=== PATIENT | male | born 1985 | race Caucasian/White ===

== ENCOUNTER 2024-08-06 09:07 | Emergency (ER) | payer MEDICAID, SELFPAY ==
[2024-08-06 09:11] VITALS: BP 149/96; PULSE 60; RESP 14; TEMP 36.8; O2SAT 98
[2024-08-06 09:20] VITALS: RESP 12
--- NOTE | 2024-08-06 09:46 | W.ED.GENAD ---
Discharge Plan Disposition Patient Disposition: Home Condition: Stable Discharge Details Clinical Impression: Disorganized behavior Primary Care Provider: Darrell Diaz ED Provider: Karlee Fitzgerald Home Meds and New Rx's Prescriptions: No Action methadone 10 mg/mL syringe 130 mg PO DAILY Discharge Instructions Instructions: Bipolar disorder - Discharge instructions Additional Instructions: You were seen in the emergency department today for evaluation of disorganized behavior and paranoid thoughts, which may or may not be related to your potential diagnosis of bipolar disorder. In the emergency department you had laboratory studies done that were reassuring, and included evidence that your liver function has improved compared to the labs that were drawn this summer. You met with a member of our social and political studies professor team and at this time are not amenable to staying in the hospital for care for your mental health concerns. Certainly you are always welcome to return to the emergency department for reevaluation and care. Additionally, you completed a safety plan with the social and political studies professor and you need to check in with their team at their office on Thursday, as per your agreement. Please follow-up with your primary care provider in the next few days to discuss this visit and any symptoms that change, worsen, or persist. Thank you for allowing us to be part of your care. HPI General Mode of arrival: ambulatory. Date/Time Provider Initiated Documentation: 08/06/24 09:08. Limitations to Documentation: no limitations. Information obtained by: patient and family. HPI Narrative: HPI: This is a 38-year-old male patient with a past medical history significant for opioid use disorder in remission on methadone maintenance therapy, a nonspecific mental health history including concern during a prior hospitalization for bipolar disorder, not on medications, presenting for evaluation of bizarre behavior. The patient is accompanied by his mother, with whom he lives. She reports that over the last week especially, but for longer as well, she has noted increasingly bizarre and paranoid behavior. The patient wrapped up his wallet, and his medications and little bundles because he is afraid that people are stealing them. She woke up this morning and states it the table on which she keeps her plants siblings had been broken, the window was open and the plans were arranged haphazardly outside the window. The patient reports that he woke up around 6 this morning, made some connections about the plants, it is all ginseng. He states that he has been sleeping well though his mother reports that she is concerned that he was up far more during the night than he reports. He spilled some of his methadone this morning, is also prescribed gabapentin but she has not been giving it to him as she is concerned that it may be compounding some of the behavioral issues that he is experiencing. The patient reports that he is not experiencing suicidal or homicidal ideation. He typically gets his care in [facility], presented here as they were concerned for biases associated with his use of methadone. Reports that he had a history of elevated liver enzymes last summer, had an ultrasound of his liver done a few weeks ago that is reported to me to have been normal. Exam: Gen: Awake and alert, in no apparent distress HEENT: Non-icteric sclera, PERRL Neck: Supple Lungs: No apparent respiratory distress, normal respiratory effort. CV: Appears well perfused Abdomen: Non-distended MSK: Moves 4 extremities without apparent limitation in ROM Skin: Visualized skin without rashes, cyanosis. Neuro: Normal Gait, no obvious focal deficits or facial asymmetry. Speaks in full, clear sentences. Psych: The patient has a guarded affect, is paranoid and verbally diss believing of the things that the parent is saying. Denies suicidal and homicidal ideation, is calm and appropriately interacting with this provider during my examination MDM: This is a 38-year-old male patient presenting for evaluation of paranoia and bizarre behavior. Differential includes but is not limited to primary psychiatric disturbance, considered mitchell, psychosis/delusions, no suicidal homicidal ideation. Considered intoxication and withdrawal symptoms, though the patient and his parent report no illicit substance or alcohol use. Considered metabolic electrolyte derangements, kidney or liver injury. At this time, the patient is amenable to laboratory workup and agrees verbally to meet with our social and political studies professor after medical clearance. We will obtain laboratory studies to include CBC, CMP, magnesium, ethanol level, urinalysis and UDS. ED Course: I independently interpreted the laboratory studies, which show no significant leukocytosis, anemia, or thrombocytopenia. The chemistry panel is without evidence of electrolyte abnormality, kidney dysfunction, or liver injury. Compared to verbal report of a transaminitis with liver enzymes in the 140s, this seems significantly improved. UDS positive for THC and methadone. The patient met with social work, and is not desiring to stay voluntarily for inpatient management of his mental health concerns. He does not meet criteria for an EE involuntary hold at this time given his ongoing lack of suicidal ideation, homicidal ideation, and his lack of behaviors that demonstrate a clear danger to himself or others. A safety plan was made and the patient will meet with NK in their office on Thursday for evaluation. At this time, the patient has had a full medical evaluation and is safe for discharge to home. They are hemodynamically stable, ambulatory, and tolerating PO. They are understanding of the follow-up plan and return precautions. They left our facility without incident. Karlee Fitzgerald MD Related Data Home Medications ?Medication ?Instructions ?Recorded ?Confirmed methadone 10 mg/mL oral syringe 130 mg PO DAILY 08/06/24 08/06/24 (FOR ORAL USE ONLY) Allergies Allergy/AdvReac Type Severity Reaction Status Date / Time buspirone (From BuSpar) AdvReac Intermediate Other (See Verified 08/06/24 09:27 Comment) trazodone AdvReac Intermediate Other (See Verified 08/06/24 09:27 Comment) General Stated Complaint: GenMedical GARCÍA: 3 Course Vital Signs Vital signs: Vital Signs Temperature 36.8 C 08/06/24 09:11 Pulse 60 08/06/24 09:11 Respiratory Rate 14 08/06/24 09:11 Blood Pressure 149/96 H 08/06/24 09:11 Pulse Oximetry 98 08/06/24 09:11 Temperature 36.8 C 08/06/24 09:11 Temperature Source Oral 08/06/24 09:11 Pulse 60 08/06/24 09:11 Respiratory Rate 12 08/06/24 09:20 Respiratory Effort Normal, Non-Labored 08/06/24 09:20 Respiratory Depth Normal 08/06/24 09:20 Respiratory Pattern Normal 08/06/24 09:20 Blood Pressure 149/96 H 08/06/24 09:11 Blood Pressure Position Sitting 08/06/24 09:11 Pulse Oximetry 98 08/06/24 09:11 Oxygen Delivery Method Room Air 08/06/24 09:11 Oxygen Flow Rate 0 08/06/24 09:11 Pain Level 0 08/06/24 09:11 Medical Decision Making Quality:SDOH Health Related Social Needs: No Data to Display PFSH All Active Problems (Updated 08/06/24 @ 12:52 by Karlee Fitzgerald MD) Disorganized behavior (Acute) Social History Smoking/Tobacco Use Status: Current every day Tobacco Type: cigarettes Tobacco: How many years used: 10 Smoking risk assessment performed?: Yes Alcohol Intake: former Drug use: Daily Substance use type: marijuana Housing: house Do you feel safe at home: Yes Do you feel safe in your relationship?: Yes
[2024-08-06 10:24] LABS: Abs Immature Grans 0.01 10^3/uL (0.0-0.06); Absolute Basophil Count 0.03 10^3/uL (0.0-0.2); Absolute Lymphocyte Count 1.18 10^3/uL (1.2-3.4); Absolute Monocyte Count 0.58 10^3/uL (0.1-0.8); Absolute Neutrophil Count 5.03 10^3/uL (1.2-6.7); Basophils % 0.4 %; Eosinophils % 1.4 %; HGB 13.5 g/dL (13.5-17.5); Immature Grans % 0.1 %; MCHC 33.8 % (32.0-36.0); MCV 95 fL (80-95); MPV 9.7 fL (8.0-11.0); Monocytes % 8.4 %; Neutrophils % 72.7 %; Platelet Count 246 10^3/uL (130-400); RBC 4.22 10^6/uL (4.36-5.78); RDW 13.2 % (11.8-14.1); RDW-SD 46.3 fL; WBC 6.93 10^3/uL (4.4-10.8)
[2024-08-06 10:28] LABS: Bilirubin Negative (Negative); Blood Negative (Negative); Clarity Clear (Clear); Glucose Negative (Negative); Ketones Negative (Negative); Leukocyte Esterase Negative (Negative); Nitrite Negative (Negative); Urobilinogen 0.2 mg/dL (Up to 0.2); pH 7.5 (5-8)
[2024-08-06 10:41] LABS: ALT 54 U/L (16-63); AST 43 U/L (15-37); Albumin 4.2 g/dL (3.4-5.0); Alkaline Phosphatase 80 U/L (46-116); Anion Gap 9.4 mmol/L (3-11); BUN 21 mg/dL (7-18); Bilirubin, Total 0.7 mg/dL (0.2-1.0); CO2 28.6 mmol/L (21.0-32.0); CREATININE 0.8 mg/dL (0.70-1.30); Calcium 9.2 mg/dL (8.5-10.1); Chloride 106 mmol/L (98-107); Estimated GFR 117.63 (mL/min/1.73m2); Glucose 109 mg/dL (74-106); Magnesium 2.1 mg/dL; Potassium 3.6 mmol/L (3.5-5.1); Sodium 144 mmol/L (136-145); Total Protein 7.5 g/dL (6.4-8.2)
[2024-08-06 10:41] LABS: *AMPHETAMINES SCREEN URINE Negative (Negative); *BARBITURATES SCREEN URINE Negative (Negative); *BENZODIAZEPINES SCREEN URINE Negative (Negative); Cannabinoids THC Positive (Negative); Cocaine Screen,Urine Negative (Negative); METHADONE URINE SCREEN Positive (Negative); OPIATES URINE SCREEN Negative (Negative)
[2024-08-06 10:44] VITALS: BP 153/97; PULSE 66; RESP 16; O2SAT 99
[2024-08-06 10:44] LABS: ETHANOL BLOOD < 3.0 mg/dL (<10)
[2024-08-06 10:44] LABS: Tricyclic Antidepressants Negative (Negative)
--- NOTE | 2024-08-06 12:20 | PDOC.CMSAFE ---
Date of service: 08/06/24 Time of Service: 12:20 Care Management Safety Plan Status Status: Voluntary
[2024-08-06 12:59] VITALS: BP 161/88; PULSE 77; RESP 18; O2SAT 98
--- NOTE | 2024-08-06 17:07 | PDOC.MHCN_ITS ---
Date of service: 08/06/24 Time of Service: 17:08 PHQ-9 Over the last 2 weeks, how often have you been bothered by any of the following problems? 1. Little interest or pleasure in doing things: not at all 2. Feeling down, depressed, or hopeless: not at all 3. Trouble falling or staying asleep, or sleeping too much: several days 4. Feeling tired or having little energy: more than half the days 5. Poor appetite or overeating: not at all 6. Feeling bad about yourself - or that you are a failure or have let yourself and your family down: several days 7. Trouble concentrating on things, such as reading the newspaper or watching television: not at all 8. Moving or speaking so slowly that other people could have noticed? - Or the opposite - being so fidgety or restless that you have been moving around a lot more than usual: nearly every day 9. Thoughts that you would be better off or of hurting yourself in some way: not at all Total score: 7 If you checked off any problems, how difficult have these problems made it for you to do your work, take care of things at home, or get along with other people?: somewhat difficult Source: Developed by Drs. Durga Barry, Priya Buchanan, Saturnino Baldwin and colleagues, with an educational herminio from [employer]. Suicide Severity Rate CSSRS Have you wished you were or wished you could go to sleep and not wake up?: No Have you actually had any thoughts of killing yourself?: No CSSRS3 Have you ever done anything, started to do anything or prepared to do anything to end your life?: No Screening Score Total Score: 0 Screening: Negative Mental Health Emergency Note Release [facility] release signed:: Yes Reason for Visit The client is not known to [facility] or this clinician. His mother became concerned about his recent behaviors and has had assessments completed in [place] per her report and his symptoms have been blamed on his methadone treatments. She was hopeful that [place] would be more helpful. He has never been hospitalized per his report, however, has had issues with the law and has served time in longterm relating to his substance use and mental health issues. Intake was completed. In the last 2 weeks has the pt presented for ES prior to today?: Unknown Client Information Client is: New Well Housed: Yes Non Suicidal Self Injury Current: No History: No Safety Risk/Harm to Self or Others Current Ideation to Harm Self or Others: No Risk: Does risk to harm exist?: yes. Access to means: Yes. Types of Means: Other weapons and Medication. Counseling provided: Yes Risk: Moderate Risk Duty to warn indicated: No Asssessment/Mental Status Appearance: Disheveled Attitude: Cooperative Behavior: Agitated Speech: Normal and Incoherent Affect: Expansive and Incongurent with mood Mood: Expansive, Stressed, Anxious and Irritable Thought process: Flight of ideas, Tangential and Poverty of content Hallucinations: No Delusions: No and yes, Persectory/Paranoid and Bizarre Attention: Wandering Perception: Derealization Orientation: Fully orientated Memory: Intact Insight: Poor Judgement: Poor Neurovegetative Symptoms Sleep: No change Appetitie: No change Interests: No change Energy: No change Libido: Not applicable Substance Use: Do you use nicotine?: No Have you used substances in the last 7 days?: No Additional Issues: Assaultive/Threatening Behavior: No Medical Concerns: No Client engaged in active self harm w/weapon: No Threatening to run away: No Child reported abuse/neglect: No Voluntarily presenting for services: Yes Domestic violence is a concern: No Extreme Psychosis or extreme behavior is present: Yes Impression The client is a 38 year old, single, male who presents to the ED via his mother after she returned from spending the night with her mother and finding starter plants they had been working on destroyed, the table they were on destroyed and flipped over and him behaving in a very bizarre paranoid manner. The client is disabled and receives social security and he stated he is trying to find a job. He lives with his mother in [facility]. He uses He/Him pronouns. All underrepresented categories were honored during this assessment. Mother drove him to [facility] from [place] as she has not found services in [place] helpful. Mother shared that he has been writing notes, crumpling them up putting a string around them and placing them in other objects like socks and hats etc. additionally, he has also been putting bags over brooms. The client is heard mumbling a lot of nonsense and all that could be understood was this is why things connect over and over. He described what he did with the plants as the ...[place]erra [place]... Explaining the table he stated I was trying to make a growing box. I sprinkled a tiny bit of water and put plants together in one big plant to grow together better. The client is observed smacking his lips, and laughing inappropriately through out the assessment. He completed his intake without much issue. The client is observed, answering most of the questions with bizarre thoughts that made no sense to the question. Prior to entering the room the client is observed frequently looking out into the ED suspiciously. He is observed getting angry with his mother and then pleading when he learned that he was here for a MH assessment he pleaded for her to take him home. This clinician explained that because he was not endorsing SI or HI there was no way to hold him involuntarily. The client is observed making poor decision making skills, insight and judgment. Resources Reosurces reviewed and given:: 988 Plan/Disposition Recommended Disposition: Community resources. Plan: The client was not agreeable to accepting a voluntary placement due to his lack of insight to what he is experiencing. The client did engage in a safety plan which was later emailed to his address and faxed to [facility]. The client and his mother agreed later to return to the ED to await placement. Person reported agreement to plan: Yes Reports/communication Outcome discussed with: ED/Personnel
== END 2024-08-06 13:03 | disposition home or self-care (01) ==
PROVIDERS: Emergency Provider Emergency Medicine; PCP Nurse Practitioner Family
DX: F31.9 Bipolar disorder, unspecified (principal); R46.2 Strange and inexplicable behavior; F11.20 Opioid dependence, uncomplicated
CPT/HCPCS: 00123; 36415; 80053; 80307; 96127; 99284; 80320; 81003; 83735; 85025

== ENCOUNTER 2024-08-06 17:48 | Emergency (ER) | payer MEDICAID, SELFPAY ==
[2024-08-06 18:02] VITALS: BP 141/88; PULSE 75; RESP 12; TEMP 36.9; O2SAT 95
--- NOTE | 2024-08-06 18:12 | ED.GENADUL_ITS ---
Discharge Plan Disposition Condition: Stable Discharge Details Chief Complaint: PsychEval Clinical Impression: Chel Primary Care Provider: Darrell Diaz ED Provider: Jeff Sánchez Home Meds and New Rx's Prescriptions: No Action methadone 10 mg/mL syringe 130 mg PO DAILY gabapentin 300 mg capsule 300 mg PO TID Patient Comments: take 1 capsule by mouth three times a day HPI General Date/Time Provider Initiated Documentation: 08/06/24 18:11 . HPI Narrative: 38 year-old male presents to ED today by POV/ambulating for the second time today for voluntary stay for in-patient admission for manic episode with onset over the past few days. Quality described as just feels off, manic, denies SI/HI, no radiation to violent agitation, medical complaint. Severity is described as moderate. Palliating factors include nothing specific. Provoking factors include nothing specific. Events leading up to the incident/Associated Symptoms: [facility] has evaluated him already, and is process of bed-search. Patient not anticoagulated. Related Data Home Medications ?Medication ?Instructions ?Recorded ?Confirmed gabapentin 300 mg capsule 300 mg PO TID 08/06/24 08/06/24 methadone 10 mg/mL oral syringe 130 mg PO DAILY 08/06/24 08/06/24 (FOR ORAL USE ONLY) Allergies Allergy/AdvReac Type Severity Reaction Status Date / Time buspirone (From BuSpar) AdvReac Intermediate Other (See Verified 08/06/24 18:07 Comment) trazodone AdvReac Intermediate Other (See Verified 08/06/24 18:07 Comment) General Stated Complaint: PsychEval GARCÍA: 2 Review of Systems All systems reviewed & are unremarkable except as noted in HPI and below Exam Narrative Exam Narrative: GENERAL APPEARANCE: Well-nourished, non-toxic, awake and alert, atraumatic, no acute distress. SKIN: Warm, pink, dry, intact, without rashes/lesions/ulcerations. HEAD: Normocephalic, atraumatic, normal hair distribution for gender/age. EYES: Normal conjunctiva, no exudates on lids/lashes. ENT: Nares patent, no circumoral cyanosis, no facial swelling NECK: Supple, trachea midline, painless cervical ROM. LUNGS/CHEST: Lungs CTA bilaterally, non-labored respirations, normal A/P diameter, symmetrical expansion, no chest wall deformity HEART (CV/PV): Regular rate and rhythm without murmur, no peripheral edema, no JVD. ABDOMEN: Soft, non-distended, no guarding. MSK: Normal ROM, no swelling/deformity to bilateral UEs or LEs, moving all extremities without weakness, no cyanosis, spine midline without tenderness, normal curvature. NEURO: Mental Status AAOx4 - alert to person, place, time, events No facial droop, no forehead involvement. Motor: No focal weakness - strength 5/5 in bilateral UEs and LEs, proximal and distal, symmetric. Sensory: sensation intact to light touch globally. Gait normal: patient ambulated without ataxia into ED room. PSYCH: euthymic, cooperative, pleasant, appropriate speech Course Vital Signs Vital signs: Vital Signs Temperature 36.9 C 08/06/24 18:02 Pulse 75 08/06/24 18:02 Respiratory Rate 12 08/06/24 18:02 Blood Pressure 141/88 H 08/06/24 18:02 Pulse Oximetry 95 08/06/24 18:02 Temperature 36.9 C 08/06/24 18:02 Temperature Source Oral 08/06/24 18:02 Pulse 75 08/06/24 18:02 Respiratory Rate 12 08/06/24 18:02 Blood Pressure 141/88 H 08/06/24 18:02 Blood Pressure Position Sitting 08/06/24 18:02 Pulse Oximetry 95 08/06/24 18:02 Oxygen Delivery Method Room Air 08/06/24 18:02 Oxygen Flow Rate 0 08/06/24 18:02 Pain Level 0 08/06/24 18:02 Medical Decision Making This dictation utilizes [id number] dictation software and may contain unedited grammatical errors. 38 year-old male presents to ED today by POV/ambulating for the second time today for voluntary stay for in-patient admission for manic episode with onset over the past few days. Quality described as just feels off, manic, denies SI/HI, no radiation to violent agitation, medical complaint. Severity is described as moderate. Palliating factors include nothing specific. Provoking factors include nothing specific. Events leading up to the incident/Associated Symptoms: [facility] has evaluated him already, and is process of bed-search. Patients' medical history: Disorganized behavior. Pertinent exam findings / vital signs include benign cardiopulmonary status, neuro baseline per Mom, benign abdomen, nontoxic and afebrile. Differential / pathologies of concern include manic episode, psychosis. Diagnostic studies of: -Prior medical clearance, none ordered at second visit. Interventions of: -10 mg p.o. Zyprexa. ED Course/Assessment/Plan: 38-year-old male presents for second time today, change his mind about leaving earlier and will wait voluntary for mental health admission, patient is comfortable watching TV, received 10 mg p.o. Zyprexa has no medical complaints, has been seen by [facility] and they are engaged in bed search. Findings not consistent with violent agitated behavior, hallucinations. Disposition of Chel. Patient verbalized understanding of the plan and return to ED criteria and engaged in shared decision making. Medical Records Medical records reviewed: Yes I reviewed the patient's medical records. Lab Data Lab results reviewed: Yes I reviewed the patient's lab results. Lab results narrative: Reviewed labs from earlier today, UDS is positive for methadone and THC, negative alcohol level, CMP and CBC are benign Quality:SDOH Health Related Social Needs: Health related social needs problems related to housin g/economic circumstances (Z59.89), problems finding work (Z56.9), problems with daily activities (Z73.9), feeling lonely/isolated (Z60.8) [facility] All Active Problems (Updated 08/06/24 @ 19:33 by JOSUE Smith) Chel (Acute) Disorganized behavior (Acute) Social History Smoking/Tobacco Use Status: Current every day Tobacco Type: cigarettes Tobacco: How many years used: 10 Smoking risk assessment performed?: Yes Alcohol Intake: former Drug use: Daily Substance use type: marijuana Housing: house Do you feel safe at home: Yes Do you feel safe in your relationship?: Yes
[2024-08-06] MEDS: OLANZapine ODT 5 MG TAB 10 MG PO (19:15)
--- NOTE | 2024-08-06 22:39 | W.EDPROG ---
Date of service: 08/06/24 Time of Service: 22:39 Medical Decision Making This patient was signed out to me. Please see previous notes for H&P and initial eval. In brief, 38yo M presenting for chel. Medically cleared, pending voluntary placement. Overnight no acute events. Early am (~0500) patient woke and began banging on glass at nurse's station. No threatening statements per nursing. On my assessment he is calm, cooperative. Amenable to taking PO ativan at this time. Requesting home dose methadone; dose was confirmed with pharmacy in [place] and ordered here. Will be signed out to oncoming physician, plan remains as above. Quality:SDOH Health Related Social Needs: Health related social needs problems related to housing/economic circumstances (Z59.89), problems finding work (Z56.9), problems with daily activities (Z73.9), feeling lonely/isolated (Z60.8) Discharge Plan Disposition Condition: Stable Discharge Details Chief Complaint: PsychEval Clinical Impression: Chel Primary Care Provider: Darrell Diaz ED Provider: Bonnie Alvarado Home Meds and New Rx's Prescriptions: No Action methadone 10 mg/mL syringe 130 mg PO DAILY gabapentin 300 mg capsule 300 mg PO TID Patient Comments: take 1 capsule by mouth three times a day
[2024-08-07] MEDS: LORazepam 1 MG TAB 2 MG PO (05:35)
--- NOTE | 2024-08-07 07:03 | W.EDPROG ---
Date of service: 08/07/24 Time of Service: 07:03 Medical Decision Making In brief, this is a 38-year-old male patient presenting for chel and paranoia, boarding in our emergency department awaiting placement. Prior to my taking over their care, the patient was medically cleared, and has been resting comfortably. They have met with the social media marketing analyst and we are awaiting final dispo. They have not required any additional medications for restraint or sedation. The patient has responded well to the oral Zyprexa, and so I scheduled this medication for twice daily dosing. He did become slightly agitated over the course of the day, desiring to leave the hospital, was able to be verbally de-escalated. He is willing to stay voluntarily, but during this event did state to the social media marketing analyst that he could just kill his mother. Given the patient's ongoing disorganized behavior, his lack of insight into his behaviors, and his homicidal statements I do feel that he would meet criteria for involuntary hold should he not be willing to continue with voluntary placement. The patient was signed out to the oncoming provider prior to final disposition. He remained voluntary while under my care. Remained hemodynamically appropriate, calm, cooperative, and comfortable while under my care. Karlee Fitzgerald MD Medical Records Medical records reviewed: Yes I reviewed the patient's medical records. Lab Data Lab results reviewed: Yes I reviewed the patient's lab results. Quality:SDOH Health Related Social Needs: Health related social needs problems related to housing/economic circumstances (Z59.89), problems finding work (Z56.9), problems with daily activities (Z73.9), feeling lonely/isolated (Z60.8) Discharge Plan Disposition Condition: Stable Discharge Details Chief Complaint: PsychEval Clinical Impression: Chel Primary Care Provider: Darrell Diaz ED Provider: Karlee Fitzgerald Home Meds and New Rx's Prescriptions: No Action methadone 10 mg/mL syringe 130 mg PO DAILY gabapentin 300 mg capsule 300 mg PO TID Patient Comments: take 1 capsule by mouth three times a day
--- NOTE | 2024-08-07 09:12 | CMSP_ITS ---
Date of service: 08/07/24 Time of Service: 09:12 Care Management Safety Plan Status Status: Voluntary Reason for Wait Reason for Wait: Inpatient Admission (Medically cleared, awaiting inpatient psychiatric hospitalization) Safety Plan Safety Plan: VOLUNTARY FOR INPATIENT PSYCHIATRIC STABILIZATION.? Patient is appropriate in all interactions since arriving at [facility]; Pt has demonstrated appropriate coping and communication skills and has articulated needs, concerns and is fully engaged during staff interactions. Safety plan has been established with patient, and care team, to adhere to patient goals, identify restrictions based on behavioral status, address nutrition, and determine allowed personal belongings, tools for hygiene and personal care. Determine level of activity including ambulation, level of supervision, visitors, and determine privileges based on behaviors and level of engagement by pt. CM coordinated huddle with RN engineering team supervisor, ER provider, Primary RN and [facility]. Homicidal statements have been made by Fredy per [facility] and they will move forward with an EE if he tries to leave. CM will follow. SAFETY PLAN: 1. Will remain on suicide precautions, in paper clothes 2. Will remain in Zone B under direct supervision of one-on-one staff at all times provided by [employer]; TOVA, INDUSTRIAL MACHINE SYSTEM TECHNICIAN international freight forwarder. 3. May have paper cups, plates, finger foods as well as a cardboard spoon with which to eat meals. 4. Follow [facility] Management of the Admitted Behavioral Health Patient policy. 5. Shower available in Zone B without restriction. 6. Personal belongings-soft items permitted at RN discretion. 7. Visitors, limited to RN discretion. 8. Activities: soft cart items approved per RN discretion. 9.? Bathroom available in Zone B without restriction. 10. Phone: incoming/outgoing calls limited to [facility] cordless phone at RN discretion. Due to VOLUNTARY status, if patient wishes to leave [facility], staff will contact [facility] Crisis Screener ([phone]) and Deli Manager ([phone]) as soon as possible. In the event of elopement, notify [place] [employer] ([phone]). Patient is currently voluntarily at [facility] and seeking inpatient admission when a bed becomes available. [facility] Frontline Sea Shell Gatherer will continue seeking placement. Please contact the Deli Manager ([phone]) and [facility] Sea Shell Gatherer ([phone]) for any needed changes in the Safety Plan. Safety plan has been provided to interdepartmental care team.
--- NOTE | 2024-08-07 09:12 | PDOC.CMSAFE ---
Date of service: 08/07/24 Time of Service: 09:12 Care Management Safety Plan Status Status: Voluntary Reason for Wait Reason for Wait: Inpatient Admission (Medically cleared, awaiting inpatient psychiatric hospitalization) Safety Plan Safety Plan: VOLUNTARY FOR INPATIENT PSYCHIATRIC STABILIZATION.? Patient is appropriate in all interactions since arriving at [facility]; Pt has demonstrated appropriate coping and communication skills and has articulated needs, concerns and is fully engaged during staff interactions. Safety plan has been established with patient, and care team, to adhere to patient goals, identify restrictions based on behavioral status, address nutrition, and determine allowed personal belongings, tools for hygiene and personal care. Determine level of activity including ambulation, level of supervision, visitors, and determine privileges based on behaviors and level of engagement by pt. CM coordinated huddle with RN supervisor plastics, ER provider, Primary RN and [facility]. Homicidal statements have been made by Fredy per [facility] and they will move forward with an EE if he tries to leave. CM will follow. SAFETY PLAN: 1. Will remain on suicide precautions, in paper clothes 2. Will remain in Zone B under direct supervision of one-on-one staff at all times provided by [employer]; TOVA, AUTO FLEET MAINTENANCE MANAGER supervisor cell efficiency. 3. May have paper cups, plates, finger foods as well as a cardboard spoon with which to eat meals. 4. Follow [facility] Management of the Admitted Behavioral Health Patient policy. 5. Shower available in Zone B without restriction. 6. Personal belongings-soft items permitted at RN discretion. 7. Visitors, limited to RN discretion. 8. Activities: soft cart items approved per RN discretion. 9.? Bathroom available in Zone B without restriction. 10. Phone: incoming/outgoing calls limited to [facility] cordless phone at RN discretion. Due to VOLUNTARY status, if patient wishes to leave [facility], staff will contact [facility] Crisis Screener ([phone]) and Pole Truck Driver ([phone]) as soon as possible. In the event of elopement, notify [place] [employer] ([phone]). Patient is currently voluntarily at [facility] and seeking inpatient admission when a bed becomes available. [facility] Frontline Inspector And Hand Packager will continue seeking placement. Please contact the Pole Truck Driver ([phone]) and [facility] Inspector And Hand Packager ([phone]) for any needed changes in the Safety Plan. Safety plan has been provided to interdepartmental care team.
[2024-08-07] MEDS: Methadone Liquid 10 MG/ML 130 MG PO (12:11)
[2024-08-07] MEDS: LORazepam 1 MG TAB PO ×2 (12:12→21:05)
[2024-08-07] MEDS: Gabapentin 300 MG CAP PO ×2 (12:12→19:20)
[2024-08-07] MEDS: OLANZapine 10 MG TAB PO ×2 (12:12→19:20)
[2024-08-07 12:29] VITALS: BP 122/70; PULSE 102; RESP 16; TEMP 36.2; O2SAT 100
--- NOTE | 2024-08-07 15:27 | MHPN_ITS ---
Date of service: 08/07/24 Time of Service: 15:28 Mental Health Emergency Note Release [facility] release signed:: Yes Reason for Visit The client is new to [facility] or this clinician. His mother became concerned about his recent behaviors and has had assessments completed in [place] per her report and his symptoms have been blamed on his methadone treatments. She was hopeful that [place] would be more helpful. He has never been hospitalized per his report, how er, has had issues with the law and has served time in residential relating to his substance use and mental health issues. This assessment is completed face to face. In the last 2 weeks has the pt presented for ES prior to today?: Yes, presented at [facility] ED Impression The client is a 38 year old, single, male who presents to the ED via his mother after she returned from spending the night with her mother and finding starter plants they had been working on destroyed, the table they were on destroyed and flipped over and him behaving in a very bizarre paranoid manner. The client is disabled and receives social security and he stated he is trying to find a job. He lives with his mother in [facility]. He uses He/Him pronouns. All underrepresented categories were honored during this assessment. The client presents with a heightened state of paranoia today making statements about his job and needing a shot but can't share information about either as he is protecting us. He stated If I don't get my shot they will need police. He talked about a driving class he has tonight thinking that today was Thursday however, he knows the date and month. He made a threat toward his mother stating This is why I want to kill her. Shes been doing this to suppress me. He talked about calling a couple of friends, getting his things out of his mothers home and putting it in the camper and having the friends cars with ball hitches and a flat bed transport his camper to [facility] as he owns a 4 story house there that he bought with a couple of friends. The attending provider and this clinician agree to write an EE if he does decide he wants to leave. The client is observed pacing, laughing inappropriately, lip smacking and flight of ideas. Plan/Disposition Recommended Disposition: Hospitalization (referrals sent early this am. ) facilities contacted. Plan: The client was not agreeable to accepting a voluntary placement due to his lack of insight to what he is experiencing. The client did engage in a safety plan which was later emailed to his address and faxed to [facility]. The client and his mother agreed later to return to the ED to await placement. He will need daily assessments until placed. The client agrees to stay today to seek treatment. Person reported agreement to plan: Yes Reports/communication Outcome discussed with: ED/Personnel
--- NOTE | 2024-08-07 23:05 | ED.PROG_ITS ---
Date of service: 08/07/24 Time of Service: 23:05 Medical Decision Making Care assumed from off going provider. Patient is currently pending voluntary inpatient psychiatric placement. He has history of unmedicated bipolar disorder and is disorganized and paranoid. This afternoon he decided that he might want to leave voluntarily, but he was advised that if he will leave, an EE will be filed and he will be held involuntarily the police will be contacted if he attempts to leave. At that time he agreed to continue his voluntary stay. Quality:SDOH Health Related Social Needs: Health related social needs problems related to housin g/economic circumstances (Z59.89), problems finding work (Z56.9), problems with daily activities (Z73.9), feeling lonely/isolated (Z60.8) Discharge Plan Disposition Condition: Stable Discharge Details Chief Complaint: PsychEval Clinical Impression: Chel Primary Care Provider: Darrell Diaz ED Provider: Bob Cardona Home Meds and New Rx's Prescriptions: No Action methadone 10 mg/mL syringe 130 mg PO DAILY gabapentin 300 mg capsule 300 mg PO TID Patient Comments: take 1 capsule by mouth three times a day
--- NOTE | 2024-08-07 23:57 | ED.PROG_ITS ---
Date of service: 08/07/24 Time of Service: 23:57 Medical Decision Making This patient was signed out to me. Please see previous notes for H&P and initial eval. In brief, 38yo M presenting for chel. Medically cleared, pending voluntary placement however likely meets EE criteria should he wish to leave. Overnight no acute events. Will be signed out to oncoming physician, plan remains as above. Quality:SDOH Health Related Social Needs: Health related social needs problems related to housin g/economic circumstances (Z59.89), problems finding work (Z56.9), problems with daily activities (Z73.9), feeling lonely/isolated (Z60.8) Discharge Plan Disposition Condition: Stable Discharge Details Chief Complaint: PsychEval Clinical Impression: Chel Primary Care Provider: Darrell Daiz ED Provider: Bonnie Alvarado Home Meds and New Rx's Prescriptions: No Action methadone 10 mg/mL syringe 130 mg PO DAILY gabapentin 300 mg capsule 300 mg PO TID Patient Comments: take 1 capsule by mouth three times a day
[2024-08-08] MEDS: LORazepam 1 MG TAB 2 MG PO (02:32)
--- NOTE | 2024-08-08 07:42 | NUR.NOTE ---
Nursing Note: patient spoke with this nurse about needing to leave d/t wanting to deal with the IRS because someone stole his identity, says he wants his belongings and wants to leave. It was explained to him that he is here in our facility to be safe, his mother brought him here. He agreed to wait for his morning medications. PT currently pacing unit, and talking to self.
--- NOTE | 2024-08-08 07:55 | ED.PROG_ITS ---
Date of service: 08/08/24 Time of Service: 07:57 Medical Decision Making Patient seeking voluntary placement currently for chel and disorganized behavior, no new acute complaints. Will continue to monitor until safe disposition found Quality:SDOH Health Related Social Needs: Health related social needs problems related to housin g/economic circumstances (Z59.89), problems finding work (Z56.9), problems with daily activities (Z73.9), feeling lonely/isolated (Z60.8) Discharge Plan Disposition Condition: Stable Discharge Details Chief Complaint: PsychEval Clinical Impression: Chel Primary Care Provider: Darrell Diaz ED Provider: Tobias Frances Home Meds and New Rx's Prescriptions: No Action methadone 10 mg/mL syringe 130 mg PO DAILY gabapentin 300 mg capsule 300 mg PO TID Patient Comments: take 1 capsule by mouth three times a day
[2024-08-08] MEDS: Gabapentin 300 MG CAP PO ×2 (08:21→14:04)
[2024-08-08] MEDS: OLANZapine 10 MG TAB PO ×2 (08:21→20:13)
[2024-08-08] MEDS: Methadone Liquid 10 MG/ML 130 MG PO (08:21)
[2024-08-08] MEDS: Nicotine 21 MG/24 HR PATCH TD (11:33)
--- NOTE | 2024-08-08 13:49 | MHPN_ITS ---
Date of service: 08/08/24 Time of Service: 10:25 PHQ-9 Over the last 2 weeks, how often have you been bothered by any of the following problems? 1. Little interest or pleasure in doing things: more than half the days 2. Feeling down, depressed, or hopeless: more than half the days 3. Trouble falling or staying asleep, or sleeping too much: several days 4. Feeling tired or having little energy: not at all 5. Poor appetite or overeating: more than half the days 6. Feeling bad about yourself - or that you are a failure or have let yourself and your family down: not at all 7. Trouble concentrating on things, such as reading the newspaper or watching television: nearly every day 8. Moving or speaking so slowly that other people could have noticed? - Or the opposite - being so fidgety or restless that you have been moving around a lot more than usual: nearly every day 9. Thoughts that you would be better off or of hurting yourself in some way: not at all Total score: 13 PHQ-9 Results: Positive Source: Developed by Drs. Durga Barry, Priya Buchanan, Saturnino Baldwin and colleagues, with an educational herminio from [employer]. Suicide Severity Rate CSSRS Have you wished you were or wished you could go to sleep and not wake up?: No Have you actually had any thoughts of killing yourself?: No CSSRS2 Have you been thinking about how you might do this?: No Have you had these thoughts and had some intention of acting on them?: No Have you started to work out or worked out the details of how to kill yourself? Do you intend to carry out this plan?: No CSSRS3 Have you ever done anything, started to do anything or prepared to do anything to end your life?: Yes CSSRS4 Was this within the past three months?: No Screening Score Total Score: 2 Screening: Positive Mental Health Emergency Note Release [facility] release signed:: Yes Reason for Visit In the last 2 weeks has the pt presented for ES prior to today?: No Client Information Client is: New Well Housed: Yes Non Suicidal Self Injury Current: No History: No Safety Risk/Harm to Self or Others Current Ideation to Harm Self or Others: Yes to others. Intent: No Plan: no, does not have a plan. Risk: Does risk to harm exist?: yes. Risk: Moderate Risk Duty to warn indicated: No Asssessment/Mental Status Appearance: Unremarkable Attitude: Other Behavior: Agitated Speech: Soft Affect: Expansive Mood: Expansive Thought process: Loose associations Hallucinations: No Delusions: yes, Persectory/Paranoid Attention: Unremarkable Perception: Not impaired Orientation: Fully orientated Memory: Intact Insight: Fair Judgement: Fair Neurovegetative Symptoms Sleep: Increase Appetitie: Decrease Interests: Increase Energy: No change Libido: Not applicable Substance Use: ETOH dependence Drug Issues: Dependence Do you use nicotine?: Yes Have you used substances in the last 7 days?: No Additional Issues: Assaultive/Threatening Behavior: No Medical Concerns: No Client engaged in active self harm w/weapon: No Threatening to run away: No Child reported abuse/neglect: No Voluntarily presenting for services: Yes Domestic violence is a concern: No Extreme Psychosis or extreme behavior is present: Yes Impression Mr De Los Santos is a 38 year old single male who resides in [facility] with his mother. The client states that he wants help and that he [facility] another place will get him help. The client presented as agitated with loose associations. The client stated he ate a few grapes and that he did not like the hospital food so he threw the rest of his breakfast out. The client denied SI and HI. The client stated he was doing great and felt better than he did the previous day. The client asked for nicotine gum or a patch. The client agreed to seek voluntary treatment at this time. The client stated that there was a worm in the back of his head that controlled his agitate and that the nicotine helped calm the worm down. Plan/Disposition Recommended Disposition: Hospitalization facilities contacted. Plan: Mr De Los Santos is a 38 year old single male who resides in [facility] with his mother. The client states that he wants help and that he hopes [email or web address] or another place will get him help. The client presented as agitated with loose associations. The client stated he ate a few grapes and that he did not like the hospital food so he threw the rest of his breakfast out. The client denied SI and HI. The client stated he was doing great and felt better than he did the previous day. The client asked for nicotine gum or a patch. The client agreed to seek voluntary treatment at this time. The client stated that there was a worm in the back of his head that controlled his agitate and that the nicotine helped calm the worm down. Reports/communication Outcome discussed with: ED/Personnel
[2024-08-08] MEDS: ALPRAZolam 0.5 MG TAB PO (14:00)
--- NOTE | 2024-08-08 14:11 | NUR.NOTE ---
At approximately 1300 patient asked to speak to his mother on the phone. After speaking to his mother, patient became extremely agitated and demanding to get his clothes to leave the department. Patient aggression heightened and security and other staff had to be called to help with patient.
[2024-08-08 14:50] VITALS: BP 120/63; PULSE 78; RESP 19; TEMP 36.9; O2SAT 98
--- NOTE | 2024-08-08 15:11 | CMSP_ITS ---
Date of service: 08/08/24 Time of Service: 15:11 Care Management Safety Plan Status Status: Involuntary Reason for Wait Reason for Wait: Inpatient Admission Safety Plan Safety Plan: INVOLUNTARY FOR INPATIENT PSYCHIATRIC STABILIZATION.? Patient is appropriate in all interactions since arriving at [facility]; Pt has demonstrated appropriate coping and communication skills, has articulated his or her needs and concerns and is fully engaged during staff interactions. Safety plan has been established with patient, and care team, to adhere to patient goals, identify restrictions based on behavioral status, address nutrition, and determine allowed personal belongings, tools for hygiene and personal care. Determine level of activity including ambulation, level of supervision, visitors, and determine privileges based on behaviors and level of engagement by pt. SAFETY PLAN: 1. Will remain on suicide precautions, in paper clothes 2. Will remain in Zone B under direct supervision of one-on-one staff at all times provided by [employer]; TOVA, FLATWORK SUPERVISOR childcare center director. 3. May have paper cups, plates, finger foods as well as a cardboard spoon with which to eat meals. 4. Follow [facility] Management of the Admitted Behavioral Health Patient policy. 5. Shower available in Zone B without restriction. 6. Personal belongings-soft items permitted at RN discretion. 7. Visitors-none at this time. 8. Activities: soft cart items approved per RN discretion. 9.? Bathroom available in Zone B without restriction. 10. Phone: limited to legal tribal via [facility] cordless phone. No phone calls to his mother at this time, as this has triggered escalation today (08/08/24). Due to INVOLUNTARY status, patient is being held at [facility] by the Department of Mental Health ([facility]) until 2nd certification by [facility] Psychiatrist can be performed (within 24 hours). Staff will provide de-escalation support (CPI) as needed. If patient wishes to leave [facility], staff will contact [facility] Crisis Screener ([phone]) and [employer] ([phone]) as soon as possible. In the event of elopement, notify [place] State [employer] ([phone]). Patient is currently involuntarily at [facility]. [facility] Frontline Manager Fitness will continue seeking placement. Please contact the [employer] for any needed changes to Safety Plan. Safety plan has been provided to interdepartmental care team. Patient will be transported by [facility] at time of discharge.
--- NOTE | 2024-08-08 15:11 | PDOC.CMSAFE ---
Date of service: 08/08/24 Time of Service: 15:11 Care Management Safety Plan Status Status: Involuntary Reason for Wait Reason for Wait: Inpatient Admission Safety Plan Safety Plan: INVOLUNTARY FOR INPATIENT PSYCHIATRIC STABILIZATION.? Patient is appropriate in all interactions since arriving at [facility]; Pt has demonstrated appropriate coping and communication skills, has articulated his or her needs and concerns and is fully engaged during staff interactions. Safety plan has been established with patient, and care team, to adhere to patient goals, identify restrictions based on behavioral status, address nutrition, and determine allowed personal belongings, tools for hygiene and personal care. Determine level of activity including ambulation, level of supervision, visitors, and determine privileges based on behaviors and level of engagement by pt. SAFETY PLAN: 1. Will remain on suicide precautions, in paper clothes 2. Will remain in Zone B under direct supervision of one-on-one staff at all times provided by [employer]; TOVA, PROCESS CONTROL ENGINEER medical record librarians teacher. 3. May have paper cups, plates, finger foods as well as a cardboard spoon with which to eat meals. 4. Follow [facility] Management of the Admitted Behavioral Health Patient policy. 5. Shower available in Zone B without restriction. 6. Personal belongings-soft items permitted at RN discretion. 7. Visitors-none at this time. 8. Activities: soft cart items approved per RN discretion. 9.? Bathroom available in Zone B without restriction. 10. Phone: limited to legal [place] via [facility] cordless phone. No phone calls to his mother at this time, as this has triggered escalation today (08/08/24). Due to INVOLUNTARY status, patient is being held at [facility] by the Department of Mental Health ([facility]) until 2nd certification by [facility] Psychiatrist can be performed (within 24 hours). Staff will provide de-escalation support (CPI) as needed. If patient wishes to leave [facility], staff will contact [facility] Crisis Screener ([phone]) and Music Orchestrator ([phone]) as soon as possible. In the event of elopement, notify [place] [employer] ([phone]). Patient is currently involuntarily at [facility]. [facility] Frontline Stitcher Around will continue seeking placement. Please contact the Music Orchestrator for any needed changes to Safety Plan. Safety plan has been provided to interdepartmental care team. Patient will be transported by [facility] at time of discharge.
--- NOTE | 2024-08-08 15:13 | PDOC.CMPRO ---
Date of service: 08/08/24 Time of Service: 15:13 Care Management Progress Note Progress Note Text Progress Note Text: CM huddled with staff today regarding Fredy's plan of care. Per RN, Fredy has been ansy today. There was a discussion about him contacting his mother by phone; after talking with her on the phone, Fredy's agitation escalated, requiring PRN medication to help stabilize him, which he was agreeable to. After this experience, CM and RN discussed the concern of Fredy becoming escalated after talking to his mother, and decided to limit phone contact to legal reno-sparks at this time. This will be reviewed daily. Per [facility], Fredy initially presented with HI, which he is denying at this time. Per report, he is presenting with delusional thoughts, loose associations, and is experiencing hallucinations, stating that there is a worm on the back of his head that controls his agitation. Per report, he requested a nicotine patch, which his RN provided. This morning, Fredy was still voluntary, seeking inpatient psychiatric care; after his episode of agitation, when he did not want to remain voluntarily in the hospital, the decision was made between [facility] and [facility] staff to file EE paperwork, therefore holding him involuntarily. Second certification to follow; Safety plan in place. CM will continue to follow. Social Determinants of Health Screening Social Determinants of Health last assessed: 08/08/24 Will the Patient Participate in the Screening?: Yes Do you worry about having a steady place to live?: no Problems where you live: no known problems In the past 12 months, have you had to go without electric, gas, oil or water in your home?: no Have you or anyone in your house had to go without enough food to eat?: no Has lack of transportation kept you from medical appointments or from doing things needed for daily living?: no Has anyone in your life made you feel unsafe or unsupported?: no How hard is it for you to pay for the very basics like food, housing, medical care, and heating? Would you say it is:: Somewhat hard Do you want help finding or keeping work or a job?: Yes, help keeping work If for any reason you need help with day-to-day activities such as bathing, preparing meals, shopping, managing finances, etc., do you get the help you need?: I could use a little more help How often do you feel lonely or isolated from those around you?: Sometimes Do you speak a language other than [place] at home?: No Does the patient want assistance with any of the above?: Yes Health Related Social Needs Health related social needs: problems related to housing/economic circumstances (Z59.89), problems finding work (Z56.9), problems with daily activities (Z73.9) and feeling lonely/isolated (Z60.8)
[2024-08-08] MEDS: ALPRAZolam 0.5 MG TAB 1.5 MG PO (15:44)
[2024-08-08 17:29] VITALS: BP 148/107; PULSE 71; RESP 20; O2SAT 98
[2024-08-08 17:38] VITALS: BP 148/107; PULSE 69; RESP 20; O2SAT 98
--- NOTE | 2024-08-08 23:00 | ED.PROG_ITS ---
Date of service: 08/08/24 Time of Service: 23:00 Medical Decision Making Care assumed from outgoing provider. Patient is currently pending involuntary psychiatric placement. He has an EE filed and a second certification is pending. Patient has a history of bipolar disorder, noncompliant with medication and is currently manic, disorganized and paranoid. He has been observed all day doing breakdancing moves in his room and pacing. He has intermittently been refusing medication. There was a sound heard that may have been a fall, but no fall was noted with direct observation or on the video camera, he had some discoloration to his forehead but this may have been from his breakdancing moves and not from trauma associated with a fall. A head CT was ordered out of an abundance of caution, but the patient has been refusing to go for the head CT. He has been attempting to escape all day, so he is a s ignificant flight risk given the low suspicion for an acute intracranial process, I have not pushed the issue of him going to CT involuntarily, sedated or in restraints. Quality:SDOH Health Related Social Needs: Health related social needs problems related to housin g/economic circumstances (Z59.89), problems finding work (Z56.9), problems with daily activities (Z73.9), feeling lonely/isolated (Z60.8) Discharge Plan Disposition Condition: Stable Discharge Details Chief Complaint: PsychEval Clinical Impression: Chel Primary Care Provider: Darrell Diaz ED Provider: Bob Cardona Home Meds and New Rx's Prescriptions: No Action methadone 10 mg/mL syringe 130 mg PO DAILY gabapentin 300 mg capsule 300 mg PO TID Patient Comments: take 1 capsule by mouth three times a day
--- NOTE | 2024-08-08 23:16 | ED.PROG_ITS ---
Date of service: 08/08/24 Time of Service: 23:16 Medical Decision Making This patient was signed out to me. Please see previous notes for H&P and initial eval. In brief, 38yo M presenting for chel. Medically cleared, initially voluntary however wanted to leave today and so EE filed and 2nd cert performed today. Pending placement. Overnight no acute events. Did not wake patient for assessment. Will be signed out to oncoming physician, plan remains as above. Quality:SDOH Health Related Social Needs: Health related social needs problems related to housin g/economic circumstances (Z59.89), problems finding work (Z56.9), problems with daily activities (Z73.9), feeling lonely/isolated (Z60.8) Discharge Plan Disposition Condition: Stable Discharge Details Chief Complaint: PsychEval Clinical Impression: Chel Primary Care Provider: Darrell Daiz ED Provider: Bonnie Alvarado Home Meds and New Rx's Prescriptions: No Action methadone 10 mg/mL syringe 130 mg PO DAILY gabapentin 300 mg capsule 300 mg PO TID Patient Comments: take 1 capsule by mouth three times a day
--- NOTE | 2024-08-09 00:19 | NUR.NOTE ---
[facility] called no beds today or tomorrow pt will remain on list.
--- NOTE | 2024-08-09 07:41 | W.EDPROG ---
Date of service: 08/09/24 Time of Service: 07:42 Medical Decision Making I received signout on this 38-year-old male currently on an EE in the setting of mitchell. His second CERT has been completed and he is pending placement. No behavioral issues overnight. I ordered him a regular diet on a safety tray. 4:26 PM Patient was accepted by Dr. Mannie Moncada. He will be transported tomorrow to [facility]. No active issues on my shift. Quality:SDOH Health Related Social Needs: Health related social needs problems related to housing/economic circumstances (Z59.89), problems finding work (Z56.9), problems with daily activities (Z73.9), feeling lonely/isolated (Z60.8) Discharge Plan Disposition Condition: Stable Discharge Details Chief Complaint: PsychEval Clinical Impression: Mitchell Primary Care Provider: Darrell Diaz ED Provider: Shekhar Mohamud Home Meds and New Rx's Prescriptions: No Action methadone 10 mg/mL syringe 130 mg PO DAILY gabapentin 300 mg capsule 300 mg PO TID Patient Comments: take 1 capsule by mouth three times a day
[2024-08-09] MEDS: Methadone Liquid 10 MG/ML 130 MG PO (08:14)
[2024-08-09] MEDS: OLANZapine 10 MG TAB PO ×2 (08:15→18:57)
[2024-08-09] MEDS: Nicotine 21 MG/24 HR PATCH TD (08:15)
[2024-08-09] MEDS: Gabapentin 300 MG CAP PO ×3 (08:15→18:57)
[2024-08-09 08:17] VITALS: BP 160/105; PULSE 104; RESP 20; TEMP 36.5; O2SAT 99
--- NOTE | 2024-08-09 12:54 | NUR.NOTE ---
Nursing Note: Pt up for shower underwear with elatsic band removed from patient and placed in locker with other pt belongings.
[2024-08-09] MEDS: diazePAM 5 MG TAB PO (13:08)
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
--- NOTE | 2024-08-09 18:01 | CMSP_ITS ---
Date of service: 08/09/24 Time of Service: 18:01 Care Management Safety Plan Status Status: Involuntary Reason for Wait Reason for Wait: Inpatient Admission Safety Plan Safety Plan: INVOLUNTARY FOR INPATIENT PSYCHIATRIC STABILIZATION.? Patient is appropriate in all interactions since arriving at [facility]; Pt has demonstrated appropriate coping and communication skills, has articulated his or her needs and concerns and is fully engaged during staff interactions. Safety plan has been established with patient, and care team, to adhere to patient goals, identify restrictions based on behavioral status, address nutrition, and determine allowed personal belongings, tools for hygiene and personal care. Determine level of activity including ambulation, level of supervision, visitors, and determine privileges based on behaviors and level of engagement by pt. SAFETY PLAN: 1. Will remain on suicide precautions, in paper clothes 2. Will remain in Zone B under direct supervision of one-on-one staff at all times provided by [employer]; TOVA, PROMOTIONS OFFICER management information systems director. 3. May have paper cups, plates, finger foods as well as a cardboard spoon with which to eat meals. 4. Follow [facility] Management of the Admitted Behavioral Health Patient policy. 5. Shower available in Zone B without restriction. 6. Personal belongings-soft items permitted at RN discretion. 7. Visitors-none at this time. 8. Activities: soft cart items approved per RN discretion. 9.? Bathroom available in Zone B without restriction. 10. Phone: limited to legal circle via [facility] cordless phone. No phone calls to his mother at this time, as this has triggered escalation today (08/08/24). Due to INVOLUNTARY status, patient is being held at [facility] by the Department of Mental Health ([facility]) until 2nd certification by [facility] Psychiatrist can be performed (within 24 hours). Staff will provide de-escalation support (CPI) as needed. If patient wishes to leave [facility], staff will contact [facility] Crisis Screener ([phone]) and Industrial Engineering Intern ([phone]) as soon as possible. In the event of elopement, notify [place] [employer] ([phone]). Patient is currently involuntarily at [facility]. [facility] Frontline Assembler Unit will continue seeking placement. Please contact the Industrial Engineering Intern for any needed changes to Safety Plan. Safety plan has been provided to interdepartmental care team. Patient will be transported by [facility] at time of discharge.
--- NOTE | 2024-08-09 18:01 | PDOC.CMSAFE ---
Date of service: 08/09/24 Time of Service: 18:01 Care Management Safety Plan Status Status: Involuntary Reason for Wait Reason for Wait: Inpatient Admission Safety Plan Safety Plan: INVOLUNTARY FOR INPATIENT PSYCHIATRIC STABILIZATION.? Patient is appropriate in all interactions since arriving at [facility]; Pt has demonstrated appropriate coping and communication skills, has articulated his or her needs and concerns and is fully engaged during staff interactions. Safety plan has been established with patient, and care team, to adhere to patient goals, identify restrictions based on behavioral status, address nutrition, and determine allowed personal belongings, tools for hygiene and personal care. Determine level of activity including ambulation, level of supervision, visitors, and determine privileges based on behaviors and level of engagement by pt. SAFETY PLAN: 1. Will remain on suicide precautions, in paper clothes 2. Will remain in Zone B under direct supervision of one-on-one staff at all times provided by [employer]; TOVA, FARMWORK[employer] linderman machine operator. 3. May have paper cups, plates, finger foods as well as a cardboard spoon with which to eat meals. 4. Follow [facility] Management of the Admitted Behavioral Health Patient policy. 5. Shower available in Zone B without restriction. 6. Personal belongings-soft items permitted at RN discretion. 7. Visitors-none at this time. 8. Activities: soft cart items approved per RN discretion. 9.? Bathroom available in Zone B without restriction. 10. Phone: limited to legal [place] via [facility] cordless phone. No phone calls to his mother at this time, as this has triggered escalation today (08/08/24). Due to INVOLUNTARY status, patient is being held at [facility] by the Department of Mental Health ([facility]) until 2nd certification by [facility] Psychiatrist can be performed (within 24 hours). Staff will provide de-escalation support (CPI) as needed. If patient wishes to leave [facility], staff will contact [facility] Crisis Screener ([phone]) and Forklift Supervisor ([phone]) as soon as possible. In the event of elopement, notify [place] [employer] ([phone]). Patient is currently involuntarily at [facility]. [facility] Frontline Seo Manager will continue seeking placement. Please contact the Forklift Supervisor for any needed changes to Safety Plan. Safety plan has been provided to interdepartmental care team. Patient will be transported by [facility] at time of discharge.
--- NOTE | 2024-08-09 18:02 | PDOC.CMPRO ---
Date of service: 08/09/24 Time of Service: 18:02 Care Management Progress Note Progress Note Text Progress Note Text: CM met with staff to discuss Fredy's plan of care. Per RN, he is presenting with delusional thoughts and paranoia today, although he is expressing awareness of his paranoia. Per report, he is taking his medications as prescribed, and asked for them this morning, which was a change that his RN noted. Per [facility], he is presenting with escalated delusional thinking and paranoia today, more so than yesterday. He has stated that he does not want his mother to have any information today. [facility] post acute care registered nurse, Adolph, is involved in Fredy's plan of care, as he is involuntary, and there are insurance barriers to his placement, as his insurance is not accepted at [facility]. He remains involuntary today for inpatient psychiatric care; referrals are pending. Safety plan in place; CM will continue to follow. Social Determinants of Health Screening Social Determinants of Health last assessed: 08/09/24 Will the Patient Participate in the Screening?: Yes Do you worry about having a steady place to live?: no Problems where you live: no known problems In the past 12 months, have you had to go without electric, gas, oil or water in your home?: no Have you or anyone in your house had to go without enough food to eat?: no Has lack of transportation kept you from medical appointments or from doing things needed for daily living?: no Has anyone in your life made you feel unsafe or unsupported?: no How hard is it for you to pay for the very basics like food, housing, medical care, and heating? Would you say it is:: Somewhat hard Do you want help finding or keeping work or a job?: Yes, help keeping work If for any reason you need help with day-to-day activities such as bathing, preparing meals, shopping, managing finances, etc., do you get the help you need?: I could use a little more help How often do you feel lonely or isolated from those around you?: Sometimes Do you speak a language other than Guyanese at home?: No Does the patient want assistance with any of the above?: Yes Health Related Social Needs Health related social needs: problems related to housing/economic circumstances (Z59.89), problems finding work (Z56.9), problems with daily activities (Z73.9) and feeling lonely/isolated (Z60.8)
--- NOTE | 2024-08-10 07:06 | ED.PROG_ITS ---
Date of service: 08/10/24 Time of Service: 07:14 Medical Decision Making In brief, this is a 38-year-old male patient boarding in our emergency department on an involuntary hold awaiting placement for inpatient psychiatric management of disorganized behavior and chel. Prior to my taking over their care, the patient was medically cleared, and has been resting comfortably. They have met with the social media analyst and we are awaiting final dispo. They have not required any additional medications for restraint or sedation. The patient was accepted to [facility], transport scheduled for this afternoon. The pt remained hemodynamically appropriate, calm, cooperative, and comfortable while under my care. Left our facility without incident. Karlee Fitzgerald MD Medical Records Medical records reviewed: Yes I reviewed the patient's medical records. Lab Data Lab results reviewed: Yes I reviewed the patient's lab results. Quality:SDOH Health Related Social Needs: Health related social needs problems related to housin g/economic circumstances (Z59.89), problems finding work (Z56.9), problems with daily activities (Z73.9), feeling lonely/isolated (Z60.8) Discharge Plan Disposition Condition: Stable Discharge Details Chief Complaint: PsychEval Clinical Impression: Chel Primary Care Provider: Darrell Diaz ED Provider: Karlee Fitzgerald Home Meds and New Rx's Prescriptions: No Action methadone 10 mg/mL syringe 130 mg PO DAILY gabapentin 300 mg capsule 300 mg PO TID Patient Comments: take 1 capsule by mouth three times a day
[2024-08-10] MEDS: Nicotine 21 MG/24 HR PATCH TD (07:57)
[2024-08-10] MEDS: Methadone Liquid 10 MG/ML 130 MG PO (07:58)
[2024-08-10] MEDS: Gabapentin 300 MG CAP PO (07:58)
[2024-08-10] MEDS: OLANZapine 10 MG TAB PO (07:58)
--- NOTE | 2024-08-10 10:33 | PDOC.MHPN2 ---
Date of service: 08/09/24 Time of Service: 10:33 Mental Health Emergency Note Release [facility] release signed:: Yes Reason for Visit The client is new to [facility] and this clinician as of 08.06.24. His mother became concerned about his recent behaviors and has had assessments completed in [place] per her report and his symptoms have been blamed on his methadone treatments. She was hopeful that [place] would be more helpful. He has never been hospitalized per his report, however, has had issues with the law and has served time in correction relating to his substance use and mental health issues. the client safety planned on said day and within a few hours was back seeking voluntary placement. On 08.08.24 the client was switched to involuntary status as he was demanding to leave. This assessment is completed face to face. In the last 2 weeks has the pt presented for ES prior to today?: Yes, presented at [facility] ED Impression The client is a 38 year old, single, male who presents to the ED via his mother after she returned from spending the night with her mother and finding starter plants they had been working on destroyed, the table they were on destroyed and flipped over and him behaving in a very bizarre paranoid manner. The client is disabled and receives social security and he stated he is trying to find a job. He lives with his mother in [place] [facility] [place]. He uses He/Him pronouns. All underrepresented categories were honored during this assessment. The client is observed sitting at his desk writing doodling and stands up to great this clinician upon entering his room. He reported he is feeling good today as he has more energy vibration. He reported he had the best sleep he has had in a long-time last night as he was given a Xanax. The client shared that he is afraid of his mother as she keeps holding his medications and does not allow him to take them. The client reported that he is eating well and denies SI/HI. He still presents with paranoia and bizarre thoughts however, his thoughts have slowed down from when this clinician screened him this past weekend. Plan/Disposition Recommended Disposition: Hospitalization facilities contacted. Plan: [facility] and will be transported in the am. The client was made aware of this and seems happy to be going. Person reported agreement to plan: Yes Reports/communication Outcome discussed with: ED/Personnel
[2024-08-10] MEDS: LORazepam 1 MG TAB PO (10:49)
== END 2024-08-10 13:01 ==
PROVIDERS: Emergency Provider Emergency Medicine; PCP Nurse Practitioner Family
DX: F30.9 Manic episode, unspecified (principal); Z59.89 Other problems related to housing and economic circumstances; Z56.9 Unspecified problems related to employment; Z73.9 Problem related to life management difficulty, unspecified; Z60.8 Other problems related to social environment
CPT/HCPCS: 00123; 96127; 99285; H0046

== ENCOUNTER 2025-04-24 15:31 | Emergency (ER) | payer MEDICAID, SELFPAY ==
[2025-04-24 15:38] VITALS: BP 151/91; PULSE 60; RESP 18; TEMP 36.3; O2SAT 97
--- NOTE | 2025-04-24 16:12 | W.ED.GENAD ---
Discharge Plan Discharge Details Chief Complaint: PsychEval Clinical Impression: Depression with suicidal ideation Primary Care Provider: Darrell Diaz ED Provider: Karlee Fitzgerald Home Meds and New Rx's Prescriptions: No Action methadone 10 mg/mL syringe 130 mg PO DAILY HPI General Mode of arrival: ambulatory. Date/Time Provider Initiated Documentation: 04/24/25 15:45. Limitations to Documentation: no limitations. Information obtained by: patient and old records reviewed. HPI Narrative: This is a 39-year-old male patient with history of bipolar disorder, polysubstance use disorder on methadone maintenance therapy, presenting for evaluation of suicidal ideation. The patient reports that he started to feel suicidal several days ago, and it has increased in severity. He states that I wish I just was not alive anymore. He states that he does not have any specific plan for how he would make that happen, but has thought in the past about cutting his wrists. He has not made any action to try to harm himself, and denies cutting, intentional overdose, etc. The patient reports that he takes daily methadone, through in [facility]. He states that he tried to stop taking this methadone, and used a dose of Suboxone at home and states that this put him into precipitated withdrawal. He states that he also smoked some cocaine a few days ago, and took Valium today to try to manage his withdrawal symptoms. The patient has otherwise been in his normal state of health, denies taking any daily medications at home other than his methadone, lives with his parents in a safe environment. Related Data Home Medications ?Medication ?Instructions ?Recorded ?Confirmed methadone 10 mg/mL oral syringe 130 mg PO DAILY 08/06/24 04/24/25 (FOR ORAL USE ONLY) Allergies Allergy/AdvReac Type Severity Reaction Status Date / Time buspirone (From BuSpar) AdvReac Intermediate Other (See Verified 04/24/25 15:43 Comment) trazodone AdvReac Intermediate Other (See Verified 04/24/25 15:43 Comment) General Stated Complaint: PsychEval GARCÍA: 2 Exam Narrative Exam Narrative: Gen: Awake and alert, in no apparent distress HEENT: Non-icteric sclera, PERRL Neck: Supple Lungs: No apparent respiratory distress, normal respiratory effort. CV: Appears well perfused Abdomen: Non-distended MSK: Moves 4 extremities without apparent limitation in ROM Skin: Visualized skin without rashes, cyanosis. Neuro: Normal Gait, no obvious focal deficits or facial asymmetry. Speaks in full, clear sentences. No tremors appreciated Psych: Endorsing suicidal ideation, the patient has appropriate eye contact, demonstrates a linear thought process, is not responding to internal stimuli during this provider's examination. Course Vital Signs Vital signs: Vital Signs Temperature 36.3 C L 04/24/25 15:38 Pulse 60 04/24/25 15:38 Respiratory Rate 18 04/24/25 15:38 Blood Pressure 151/91 H 04/24/25 15:38 Pulse Oximetry 97 04/24/25 15:38 Temperature 36.3 C L 04/24/25 15:38 Temperature Source Tympanic 04/24/25 15:38 Pulse 60 04/24/25 15:38 Respiratory Rate 18 04/24/25 15:38 Blood Pressure 151/91 H 04/24/25 15:38 Pulse Oximetry 97 04/24/25 15:38 Oxygen Delivery Method Room Air 04/24/25 15:38 Oxygen Flow Rate 0 04/24/25 15:38 Pain Level 8 04/24/25 15:38 Medical Decision Making This is a 39-year-old male patient presenting for evaluation of suicidal ideation. My differential includes but is not limited to primary psychiatric disturbance, certainly considered medication effect including withdrawal syndromes, acute intoxication, the patient is reassuringly without evidence of severe opioid withdrawal at this time. I considered metabolic and electrolyte derangements, kidney injury, liver pathology. No fevers or localizing symptoms to suggest acute infection. We obtained laboratory studies to include CBC, CMP, magnesium, urinalysis and UDS. These were reviewed by myself, and show no significant leukocytosis or anemia, no thrombocytopenia. Chemistry panel with mild hypokalemia to 3.3 which was repleted orally. No evidence of kidney or liver pathology. Urinalysis with trace blood but no infectious findings. UDS positive for methadone, benzos, cocaine, and cannabinoids. Ethanol negative. After medical clearance, [facility] was contacted to evaluate the patient. The patient is desiring of inpatient admission, and referrals were sent. The patient was admitted to ED psych observation, he was provided with an oral dose of Ativan for anxiety, and at the time that I signed out care of this patient to the oncoming provider was continuing to await final disposition. He remained calm, cooperative, and comfortable while under my care. Karlee Fitzgerald MD Quality:SDOH Health Related Social Needs: Health related social needs house/econ circumstance finding work daily activities lonely/isolated PFSH All Active Problems (Updated 04/24/25 @ 22:53 by Karlee Fitzgerald MD) Depression with suicidal ideation (Acute) Social History Smoking/Tobacco Use Status: Current every day Tobacco Type: cigarettes Tobacco: How many years used: 10 Smoking risk assessment performed?: Yes Alcohol Intake: former Drug use: Daily Substance use type: marijuana Housing: house Do you feel safe at home: Yes Do you feel safe in your relationship?: Yes
[2025-04-24 16:19] LABS: Abs Immature Grans 0.05 10^3/uL (0.0-0.06); HCT 39.7 % (40.0-50.0); HGB 13.3 g/dL (13.5-17.5); Immature Grans % 0.4 %; MCH 31.0 pg (27.0-33.0); MCHC 33.5 % (32.0-36.0); MCV 93 fL (80-95); MPV 9.3 fL (8.0-11.0); Platelet Count 296 10^3/uL (130-400); RBC 4.29 10^6/uL (4.36-5.78); RDW 12.1 % (11.8-14.1); RDW-SD 41.3 fL; WBC 11.30 10^3/uL (4.4-10.8)
[2025-04-24 16:31] LABS: Magnesium 1.6 mg/dL (1.6-2.6)
[2025-04-24 16:33] LABS: ALT 46 U/L (10-49); AST 28 U/L (<34); Albumin 5.1 g/dL (3.4-5.0); Alkaline Phosphatase 68 U/L (46-116); Anion Gap 8.5 mmol/L (3-11); BUN 19 mg/dL (9-23); Bilirubin, Total 0.60 mg/dL (0.2-1.2); CO2 29.5 mmol/L (20.0-31.0); Calcium 9.8 mg/dL (8.3-10.6); Chloride 104 mmol/L (98-107); Glucose 84 mg/dL (74-106); Potassium 3.3 mmol/L (3.5-5.1); Sodium 142 mmol/L (136-145); Total Protein 7.9 g/dL (5.7-8.2)
--- NOTE | 2025-04-24 16:43 | PDOC.CMSAFE ---
Date of service: 04/24/25 Time of Service: 16:43 Care Management Safety Plan Status Status: Voluntary Reason for Wait Reason for Wait: Assessment/Screening Safety Plan Safety Plan: CM will respond to ED to assess patient after patient has been medically cleared and assessed by screener. If screener deems patient meets criteria for psychiatric stabilization CM will facilitate interdepartmental huddle with [facility] screener for safety planning considerations and meet with patient to review [facility] policy and safety plan, establish individual wishes for treatment and maintain patient rights. In the interim; please note safety plan below to guide patient care while awaiting further assessment in the ED.? SAFETY PLAN: 1. Will remain on suicide precautions and in paper clothes.? 2. Will remain in room under direct supervision of one-on-one staff at all times provided by [employer], INVESTMENT UNDERWRITER early morning. 3. May have paper cups, plates, finger foods as well as a cardboard spoon with which to eat meals. 4. Follow [facility] Management of the Admitted Behavioral Health Patient policy. 5. Comfort bath system only. 6. No personal belongings 7. No visitors. 8. Phone contact limited to?.. 9. Due to VOLUNTARY status, if patient wishes to leave [facility], staff will contact [facility] Crisis Screener ([phone]) and On-Call Daycare Assistant ([phone]) as soon as possible. In the event of elopement, notify [facility] Police ([phone]). ? If deemed appropriate for inpatient psychiatric care, safety plan will be established with patient, and care team, to adhere to patient goals, identify restrictions based on behavioral status, address nutrition, and determine allowed personal belongings, tools for hygiene and personal care. As well plan will determine level of activity including ambulation, level of supervision, visitors, and determine privileges based on level of acuity, behaviors and level of engagement by patient.
[2025-04-24] MEDS: Potassium Chloride 20 MEQ TABCR 40 MEQ PO (16:52)
[2025-04-24 17:19] LABS: Glucose Negative (Negative)
[2025-04-24 17:33] LABS: C & S Indicated? No
[2025-04-24 17:50] LABS: Cannabinoids THC Positive (Negative)
[2025-04-24 19:12] VITALS: BP 96/64; PULSE 64; RESP 16; TEMP 36.5; O2SAT 99
--- NOTE | 2025-04-24 22:06 | PDOC.MHCN_ITS ---
Date of service: 04/24/25 Time of Service: 18:03 PHQ-9 Over the last 2 weeks, how often have you been bothered by any of the following problems? 1. Little interest or pleasure in doing things: more than half the days 2. Feeling down, depressed, or hopeless: more than half the days 3. Trouble falling or staying asleep, or sleeping too much: nearly every day 4. Feeling tired or having little energy: more than half the days 5. Poor appetite or overeating: nearly every day 6. Feeling bad about yourself - or that you are a failure or have let yourself and your family down: more than half the days 7. Trouble concentrating on things, such as reading the newspaper or watching television: not at all 8. Moving or speaking so slowly that other people could have noticed? - Or the opposite - being so fidgety or restless that you have been moving around a lot more than usual: not at all 9. Thoughts that you would be better off or of hurting yourself in some way: several days Total score: 15 If you checked off any problems, how difficult have these problems made it for you to do your work, take care of things at home, or get along with other people?: very difficult PHQ-9 Results: Positive Source: Developed by Drs. Durga Barry, Priya Buchanan, Saturnino Baldwin and colleagues, with an educational herminio from [employer]. Suicide Severity Rate CSSRS Have you wished you were or wished you could go to sleep and not wake up?: Yes Have you actually had any thoughts of killing yourself?: No CSSRS3 Have you ever done anything, started to do anything or prepared to do anything to end your life?: No CSSRS4 Was this within the past three months?: No Screening Score Total Score: 2 Screening: Positive Mental Health Emergency Note Release [facility] release signed:: Yes Reason for Visit Initial Mental Health Assessment In the last 2 weeks has the pt presented for ES prior to today?: No Client Information Well Housed: Yes Non Suicidal Self Injury Current: No History: No Safety Risk/Harm to Self or Others Current Ideation to Harm Self or Others: No CALM/Risk Level Does risk to harm exist?: yes. Access to means: No. Risk: Low Risk Duty to warn indicated: No Asssessment/Mental Status Appearance: Unremarkable and Well groomed Attitude: Cooperative Behavior: Unremarkable Speech: Normal Affect: Normal Mood: Euthymic Thought process: Unremarkable Hallucinations: No and No evidence Delusions: No and No evidence Attention: Unremarkable Perception: Not impaired Orientation: Fully orientated Memory: Intact Insight: Fair Judgement: Fair Neurovegetative Symptoms Sleep: Decrease Appetitie: Decrease Interests: Decrease Energy: Decrease Libido: Not applicable Substance Use: Do you use nicotine?: Yes Have you used substances in the last 7 days?: yes, Used cocaine Additional Issues: Assaultive/Threatening Behavior: No Medical Concerns: No Client engaged in active self harm w/weapon: No Threatening to run away: No Child reported abuse/neglect: No Voluntarily presenting for services: Yes Domestic violence is a concern: No Extreme Psychosis or extreme behavior is present: No Impression Client is a 39 y/o male known to [facility] and [facility], but this marketing writer is not familiar. He is in bed in Zone B at the time our assessment begins. He is well groomed, his eye contact is good, and he is cooperative. Client reports that he has been feeling very depressed lately. When questioned, he says that this has been for about the past week. He states that he has been feeling suicidal, but denies a plan or intent. Client states that he has been on Methadone for approximately 1 year. He recently decided that he should come off of this medication, and began to ween himself off of it without medical supervision. He states that a couple days after he stopped taking the Methadone that he took a Suboxon and that he immediately knew I shouldn't have. He states that he went into withdrawal and felt like crap. Client is voluntarily seeking inpatient hospitalization to be evaluated for psychiatric medication and to develop coping skills.? Plan/Disposition Recommended Disposition: Hospitalization facilities contacted. Plan: Client will wait on Zone B until appropriate inpatient placement can be secured. Person reported agreement to plan: Yes Facilities contacted if Applicable [facility] Not accepted, No bed available [facility] Not accepted, No bed available, [facility] Not accepted, No bed available Reports/communication Outcome discussed with: ED/Personnel
[2025-04-24] MEDS: LORazepam 1 MG TAB PO (22:54)
--- NOTE | 2025-04-25 04:42 | ED.PROG1_ITS ---
Date of service: 04/24/25 Time of Service: 23:00 Psychiatric Border Handoff Update Brief Story: 39yo M with hx bipolar and polysubstance use presented for passive SI with no intent or plan. Evaluated by [facility] with referrals sent for voluntary inpatient treatment. Status: voluntary Able to leave: yes MDM Shift Events: At ~0430 I was notified by nursing that patient had awakened after apparently sleeping the first half of the shift and was agitated, stating that he needed his methadone immediately and also requesting something for anxiety. He was offered ativan which he refused, and was informed that methadone is kept in the pharmacy and pharmacy staff would be available at 0700. He then began swearing at staff, stating you can suck my ysabel then you fucking cunt to nursing. On my assessment agitated, continues yelling at staff, requested I give him xanax. In informed him I would not be prescribed xanax, he then stated suck my ysabel you useless cunt and return to his room. Shortly there after he exited his room and stated that he wanted to leave, refused to answer further questions. There is nothing on documented history to suggest that he meets involuntary admission criteria at this time and per [place] state law I have no indication to hold him against his will. Discharged; discharge instructions were provided to patient and [facility] was updated regarding his leaving. Ambulated off property at 0455 with steady gait. Discharge Plan Disposition Patient Disposition: Home Condition: Fair Discharge Details Clinical Impression: Depression with suicidal ideation Primary Care Provider: Darrell Diaz ED Provider: Bonnie Alvarado Home Meds and New Rx's Prescriptions: Continued methadone 10 mg/mL syringe 130 mg PO DAILY Discharge Instructions Instructions: Suicide Prevention Additional Instructions: Please call your primary care doctor in the morning to schedule an appointment for within 24-48 to followup on your visit here. At that visit please discuss your anxiety and depression. * Please return to the emergency department if your thoughts have self harm worsen, if you intend to hurt yourself or kill yourself, or if you develop hallucinations. Stand Alone Forms: Portal Information
== END 2025-04-25 04:57 | disposition home or self-care (01) ==
PROVIDERS: Emergency Medicine; Emergency Provider Student in an Organized Health Care Education/Training Program; PCP Nurse Practitioner Family
DX: F32.A Depression, unspecified (principal); R45.851 Suicidal ideations
CPT/HCPCS: 99284; 99285; 36415; 00123; 80053; 80307; 96127; 80320; 81003; 81015; 83735; 85025